=== PATIENT | female | born 1960 | race Two or more races ===

== ENCOUNTER 2022-10-09 07:45 | Inpatient (IN) | payer OTHER ==
[~2022-10-09] VITALS: Ht 162.6 cm; Wt 68.9 kg
[2022-10-17] MEDS ORDERED: PERCOCET 5-3251 EACH PO (09:17)
== END 2022-10-17 10:27 | disposition home or self-care (01) | DRG 743 ==
LOC: SURG 10-14 07:45 → O/R 10-14 10:23 → OB/GYN 10-14 20:21
PROVIDERS: ADMIT Obstetrics & Gynecology; ATTEND Obstetrics & Gynecology
PROC: 0UT70ZZ Resection of Bilateral Fallopian Tubes, Open Approach (ICD-10-PCS; 2022-10-14)
PROC: 0UT20ZZ Resection of Bilateral Ovaries, Open Approach (ICD-10-PCS; 2022-10-14)
PROC: 0UT90ZZ Resection of Uterus, Open Approach (ICD-10-PCS; principal; 2022-10-14 09:15)
DX: D25.1 Intramural leiomyoma of uterus (principal); D25.2 Subserosal leiomyoma of uterus; N85.01 Benign endometrial hyperplasia; N72 Inflammatory disease of cervix uteri; Z20.822 Contact with and (suspected) exposure to COVID-19; D27.0 Benign neoplasm of right ovary

== ENCOUNTER 2023-10-20 07:45 | Day surgery (SDC) | payer OTHER ==
[2023-10-13 08:21] LABS: URINE APPEARANCE Clear; URINE BILIRRUBIN Negative (NEGATIVE); URINE BLOOD Small; URINE COLOR Yellow; URINE GLUCOSE Negative (NEGATIVE); URINE LEUKOCYTE Small; URINE NITRATE Negative; URINE PROTEIN Negative (NEGATIVE); URINE UROBILINOGEN 0.2 E.U./dl
[2023-10-13 08:21] LABS: HEMOGLOBIN 13.8 g/dL (12.0-15.00); MEAN CELL VOLUME 85.3 fL (80.00-100.00); MEAN CORPUSCULAR HEMOGLOBIN 29.3 pg (27.00-32.0); MEAN CORPUSCULAR HGB CONC 34.4 g/dl (32.0-36.0); PLATELET COUNT 298 K/uL (150-450); RED BLOOD COUNT 4.69 M/uL (4.00-6.00); RED CELL DISTRIBUTION WIDTH 14.1 % (11.5-14.5)
[2023-10-13 08:25] LABS: URINE EPITHELIAL CELLS 7.5 uL (0.0-38.8); URINE RBC 26.1 uL (0.0-20.8); URINE WBC 18.2 uL (0.0-23.2)
[2023-10-13 08:42] LABS: CALCIUM 10.3 mg/dL (8.5-10.1); CREATININE SERUM 0.82 mg/dL (0.55-1.02); GFR 70.64; INR 0.97; PARTIAL THROMBOPLASTIN TIME 34.5 SECONDS (22.0-34.0); POTASSIUM 3.97 mEq/L (3.5-5.1); PROTHROMBIN TIME 10.2 SECONDS (9.0-11.5)
[~2023-10-20 07:45] MED LIST: PERCOCET 5-3251 EACH PO; PROTONIX40 MG PO; SYNTHROID50 MCG PO
[2023-10-20] MEDS ORDERED: PERCOCET 5-3251 EACH PO (14:24)
== END 2023-10-20 17:45 | disposition home or self-care (01) ==
LOC: CIR.AMB 07:45
PROVIDERS: ATTEND Surgery
DX: K80.10 Calculus of gallbladder with chronic cholecystitis without obstruction (principal); K80.20 Calculus of gallbladder without cholecystitis without obstruction; Z20.822 Contact with and (suspected) exposure to COVID-19